=== PATIENT | female | born 1980 | race Caucasian/White ===

== ENCOUNTER 2018-01-05 16:35 | Emergency (ER) | payer MEDICAID ==
[2018-01-05 17:08] VITALS: BMI 23.3
[2018-01-05 17:55] LABS: SQUAMOUS EPITHIAL 9 /hpf (0-5); URINE BACTERIA FEW (<OCC); URINE BILIRUBIN NEGATIVE (NEGATIVE); URINE BLOOD NEGATIVE (NEGATIVE); URINE CLARITY Hazy (Clear); URINE COLOR Yellow (YELLOW); URINE GLUCOSE (UA) 1+ mg/dL (Normal); URINE LEUKOCYTE ESTERASE 2+ Leu/uL (Negative); URINE PROTEIN 1+ mg/dL (NEGATIVE)
--- NOTE | 2018-01-05 18:06 | OBHP ---
Datetime: 01/05/2018 18:02 Admit Comment, IP Provider: ua 3+ le pt feels good plan dc home macrobid po hy ptl giveb f/u in 1 day FHR - Baseline A Provider: 140 Contraction Comments Provider: none NICHD Variability Prov Fetus A: Moderate 6-25bpm NICHD Accel Fetus A IP Provider: 15X15 FHR Category Provider Fetus A: Category I
--- NOTE | 2018-01-05 18:08 | OBDCSUM ---
Datetime: 01/05/2018 18:05 Discharged to, Provider: Home Follow up at, Provider: 1-2 Follow up in weeks, Provider: clinic Discharge Comment, Provider: macrobid po hy ptl giveb f/u in 1 day Discharge Diagnosis Prov Other: 36week uti nst
[2018-01-05 22:33] VITALS: BP 102/69; PULSE 90
== END 2018-01-05 18:20 | disposition home or self-care (01) ==
LOC: C.EROB 16:35
DX: O23.43 Unspecified infection of urinary tract in pregnancy, third trimester (principal); Z3A.36 36 weeks gestation of pregnancy

== ENCOUNTER 2018-01-26 07:51 | Inpatient (IN) | payer MEDICAID, OTHER ==
[2018-01-26 07:54] VITALS: BMI 25.0
[2018-01-26 08:09] LABS: BASO # 0.1 K/uL (0.0-0.2); EOS # 0.6 K/uL (0.0-0.7); EOS % 4.6 % (0.0-4.0); HEMOGLOBIN 9.8 g/dL (11.0-16.0); LYMPH # 3.5 K/uL (1.0-4.3); LYMPH % 26.9 % (20.0-40.0); MEAN CELL VOLUME 75.2 fL (81.0-99.0); MEAN CORPUSCULAR HEMOGLOBIN 24.3 pg (27.0-31.0); MEAN CORPUSCULAR HGB CONC 32.4 g/dL (33.0-37.0); MEAN PLATELET VOLUME 9.9 fL (7.2-11.7); MONO # 1.2 K/uL (0.0-0.8); MONO % 9.4 % (0.0-10.0); NEUT # 7.6 K/uL (1.8-7.0); NEUT % 58.1 % (50.0-75.0); RBC 4.05 Mil/uL (3.80-5.20)
[2018-01-26 08:18] LABS: SQUAMOUS EPITHIAL 49 /hpf (0-5); URINE BACTERIA RARE (<OCC); URINE BILIRUBIN NEGATIVE (NEGATIVE); URINE BLOOD NEGATIVE (NEGATIVE); URINE CLARITY Hazy (Clear); URINE GLUCOSE (UA) NORMAL (Normal); URINE LEUKOCYTE ESTERASE 3+ Leu/uL (Negative); URINE PROTEIN NEGATIVE (NEGATIVE); URINE UROBILINOGEN NORMAL mg/dL (0.2-1.0)
[2018-01-26 08:21] LABS: URINE COLOR YELLOW (YELLOW)
[2018-01-26 08:32] LABS: ALB/GLOB RATIO 0.9 (1.0-2.1); ALBUMIN 3.3 g/dL (3.5-5.0); ALT/SGPT 10 U/L (9-52); AST/SGOT 24 U/L (14-36); BLOOD UREA NITROGEN 6 mg/dL (7-17); CALCIUM 8.2 mg/dl (8.6-10.4); GFR AFRICAN-AMERICAN > 60; GFR NON-AFRICAN AMERICAN > 60
[2018-01-26] MEDS ORDERED: Sodium Citrate/Citric Acid 15 ml Sol ONE (08:35)
[2018-01-26] MEDS ORDERED: cefOXitin IV 2 gm in Saline 2 GM/50 ML BAG IVPB ONE (08:37)
[2018-01-26] MEDS ORDERED: Sodium Citrate/Citric Acid 15 ml Sol PO ONE (08:45)
[2018-01-26] MEDS ORDERED: cefOXitin IV 2 gm in Saline 2 GM in Sodium Chloride 0.9% 100 ML IV ONE (09:00)
[2018-01-26] MEDS ORDERED: Oxytocin 10 Units/ml Inj ONE (09:06)
[2018-01-26] MEDS ORDERED: Oxytocin 20 units in LR 2,000 ML IV ONE (09:07)
[2018-01-26] MEDS ORDERED: ePHEDrine 50 mg/ml Inj ONE (09:10)
[2018-01-26] MEDS ORDERED: Morphine 1 mg/ml preservative-free Inj(Duramorph) ONE (09:10)
--- NOTE | 2018-01-26 09:16 | OBADHP ---
Datetime: 01/26/2018 09:11 Admit Comment, IP Provider: @ 39 wks hx of prior cxs 18 months ago here for schleued repta c xs densi any lof, vb, ctx, +FM. Pt has no copliants OB: FT CXS x 1 unomplciated PROGRAM TRAINER: dnies hx of abnormal pa, fibrod, ovairn syt, sti pmhh denies PSH: CxS med pnv all nkda psh de soch de ve closed @ 39 wks GA for schleued repaet CxS admi to L_D npo, ivf admission labs cont tooc and efm prolphylactyi anbitiocs abodminal prep mae to gravity scds or/anestehis aware Pelvic Type - PN: Adequate Extremities - PN: Normal Abdomen - PN: Normal Back - PN: Normal Breast - PN: Not Done Lungs - PN: Normal Heart - PN: Normal Thyroid - PN: Not Done Neurologic - PN: Normal HEENT - PN: Normal General - PN: Normal Presentation-Admit: Vertex FHR - Baseline A Provider: 145 Membranes, Provider: Intact Gestation - Est Wks by US: 39.0 IP Hx Assessment: The History has been Reviewed and is Current Vital Signs Provider: Reviewed; Within Normal Limits IP Chief Complaint: Scheduled Section NICHD Variability Prov Fetus A: Moderate 6-25bpm FHR Category Provider Fetus A: Category I NICHD Decel Fetus A IP Provider: None Dilatation, Provider: 0 Genitourinary Exam: Normal DTRs - PN: Normal EGA AdmitDate IP: 39.0 IP Adm Impression: Term, intrauterine IP Admit Plan: Admit to unit Datetime: 01/05/2018 18:02 IP Chief Complaint Other: cramping Contraction Comments Provider: none NICHD Accel Fetus A IP Provider: 15X15 Effacement, Provider: 0 Station, Provider: -4
--- NOTE | 2018-01-26 12:10 | OBDS ---
DELIVERY PERSONNEL Delivery Doctor: Jeannette Valle MD Scrub Nurse: Willow Smith/ Yoli Stovall RN Tool And Equipment Rental Clerk: Allyn Castillo RN Anesthesiologist: Resident: Milli Mae (Medical Student) MATERNAL INFORMATION Delivery Anesthesia: Spinal Medications in Delivery: Pitocin 20 units in 1000ml LR Estimated Blood Loss (ml): 800 Placenta Cultured: No Maternal Complications: None; Premature Rupture of Membranes RN Comments: Liveborn Baby Boy. 9-9 Provider Comments: live male infant agpar 9,9 weight of 7lbs 10 ounces repat cxs no compliationa eba l 800 ml pediatiral presnt for deliveyr LABOR SUMMARY EDC: 02/02/2018 00:00 No. Babies in Womb: 1 Attempted: No Labor Anesthesia: None LABOR INFORMATION Reason for Induction: Not Applicable Oxytocin: N/A Group B Beta Strep: Positive Antibiotics # of Doses: 1 Antibiotics Time of Last Dose: MEfoxin 2gm IV @ 9:15am Steroids Given: None Reason Steroids Not Administered: Not Applicable MEMBRANES Membranes Rupture Method: Artificial Rupture of Membranes: 01/26/2018 09:43 Length of Rupture (hrs): 0.00 Amniotic Fluid Color: Clear Amniotic Fluid Amount: None Amniotic Fluid Odor: Normal STAGES OF LABOR Stage 3 hrs: 0 Stage 3 min: 2 CSECTION DELIVERY Primary Indication: Repeat Elective Secondary Indication: N/A CSection Urgency: Non Elective CSection Incidence: Repeat Labor: No Labor Elective: Nonelective CSection Incision: Lower Uterine Transverse BABY A INFORMATION Delivery Date/Time: 01/26/2018 09:43 Method of Delivery: Born in Route : No : N/A Forceps: N/A Vacuum Extraction: N/A Shoulder Dystocia : No SHOULDER DYSTOCIA BABY A Delivery Date/Time: 01/26/2018 09:43 PRESENTATION/POSITION BABY A Presentation: Cephalic Cephalic Presentation: Vertex Vertex Position: Left Occipital Anterior Breech Presentation: N/A PLACENTA INFORMATION BABY A Placenta Delivery Time : 01/26/2018 09:45 Placenta Method of Delivery: Manual Removal Placenta Status: Delivered SCORES BABY A Heart Rate 1 min: >100 bpm Resp Effort 1 min: Good Cry Reflex Irritability 1 min: Cough or Sneeze or Pulls Away Muscle Tone 1 min: Active Motion Color 1 min: Body [place], Extremities Blue Resuscitation Effort 1 min: N/A SCORE 1 MIN: 9 Heart Rate 5 min: >100 bpm Resp Effort 5 min: Good Cry Reflex Irritability 5 min: Cough or Sneeze or Pulls Away Muscle Tone 5 min: Active Motion Color 5 min: Body [place], Extremities Blue Resuscitation Effort 5 min: N/A SCORE 5 MIN: 9 INFORMATION BABY A Gestational Age at Delivery: 39.0 Gestational Status: Term Infant Outcome : Liveborn Condition : Stable Infant Sex: Male IDENTIFICATION/MEDS BABY A ID Band Number: [id number] ID Band Location: Left Leg; Left Arm Sensor Applied: Yes Sensor Number: [id number] Sensor Location : Cord Clamp Vitamin K Given : Not Given Erythromycin Given: Not Given WEIGHT/LENGTH BABY A Birthweight (gms): 3470 Weight (lb): 7 Weight (oz): 10 Length Inches: 20.00 Length cms: 50.8 CORD INFORMATION BABY A No. Cord Vessels: 3 Nuchal Cord : N/A Cord Blood Taken: Yes Infant Suction: Mouth; Nose ASSESSMENT BABY A Infant Complications: None Physical Findings at Delivery: Within Normal Limits Infant Respirations: Appears Normal Switchboard Wire Worker Helper/ALS Called : No Infant Care By: Transferred To: [facility]
--- NOTE | 2018-01-26 12:12 | PCM.SURG1 ---
Surgeon's Initial Post Op Note - Surgeon's Notes Surgeon: Yadira woods MD Awning Hanger Helper: Dr Raul Watts Type of Anesthesia: Spinal Pre-Operative Diagnosis: Previous Cesearean section for repeat cesearean section , term intrauteiren Operative Findings: live male infant gapar 9,9 weight of 7lbs 10 ounces, normal appeairn guteurs, tubes and ovaries b/l, fuel house attendant present for deliveyr. Dr Watts was surgical assistan and present for entire case and essential in gaining entry, retractin, exposure, hoding bladder blade , helping to dleiver infanta, closing all layers and was prsent for etnire case. Post-Operative Diagnosis: same as above Operation Performed: repeat low transverse cesearean section Specimen/Specimens Removed: placneta Estimated Blood Loss: EBL {In ML}: 800 Blood Products Given: N/A Drains Used: No Drains Date of Surgery/Procedure: 01/26/18 Time of Surgery/Procedure: 10:00
--- NOTE | 2018-01-26 12:21 | OBDS ---
DELIVERY PERSONNEL Delivery Doctor: Jeannette Valle MD Scrub Nurse: Willow Smith/ Yoli Stovall RN Medical Administrative: Allyn Castillo RN Anesthesiologist: Resident: Milli Mae (Medical Student) MATERNAL INFORMATION Delivery Anesthesia: Spinal Medications in Delivery: Pitocin 20 units in 1000ml LR Estimated Blood Loss (ml): 800 Placenta Cultured: No Maternal Complications: None; Premature Rupture of Membranes RN Comments: Liveborn Baby Boy. 9-9 Provider Comments: live male infant agpar 9,9 weight of 7lbs 10 ounces repat cxs no compliationa eba l 800 ml pediatiral presnt for deliveyr LABOR SUMMARY EDC: 02/02/2018 00:00 No. Babies in Womb: 1 Attempted: No Labor Anesthesia: None LABOR INFORMATION Reason for Induction: Not Applicable Oxytocin: N/A Group B Beta Strep: Positive Antibiotics # of Doses: 1 Antibiotics Time of Last Dose: MEfoxin 2gm IV @ 9:15am Steroids Given: None Reason Steroids Not Administered: Not Applicable MEMBRANES Membranes Rupture Method: Artificial Rupture of Membranes: 01/26/2018 09:43 Length of Rupture (hrs): 0.00 Amniotic Fluid Color: Clear Amniotic Fluid Amount: None Amniotic Fluid Odor: Normal STAGES OF LABOR Stage 3 hrs: 0 Stage 3 min: 2 CSECTION DELIVERY Primary Indication: Repeat Elective Secondary Indication: N/A CSection Urgency: Non Elective CSection Incidence: Repeat Labor: No Labor Elective: Nonelective CSection Incision: Lower Uterine Transverse BABY A INFORMATION Delivery Date/Time: 01/26/2018 09:43 Method of Delivery: Born in Route : No : N/A Forceps: N/A Vacuum Extraction: N/A Shoulder Dystocia : No SHOULDER DYSTOCIA BABY A Delivery Date/Time: 01/26/2018 09:43 PRESENTATION/POSITION BABY A Presentation: Cephalic Cephalic Presentation: Vertex Vertex Position: Left Occipital Anterior Breech Presentation: N/A PLACENTA INFORMATION BABY A Placenta Delivery Time : 01/26/2018 09:45 Placenta Method of Delivery: Manual Removal Placenta Status: Delivered SCORES BABY A Heart Rate 1 min: >100 bpm Resp Effort 1 min: Good Cry Reflex Irritability 1 min: Cough or Sneeze or Pulls Away Muscle Tone 1 min: Active Motion Color 1 min: Body [place], Extremities Blue Resuscitation Effort 1 min: N/A SCORE 1 MIN: 9 Heart Rate 5 min: >100 bpm Resp Effort 5 min: Good Cry Reflex Irritability 5 min: Cough or Sneeze or Pulls Away Muscle Tone 5 min: Active Motion Color 5 min: Body [place], Extremities Blue Resuscitation Effort 5 min: N/A SCORE 5 MIN: 9 INFORMATION BABY A Gestational Age at Delivery: 39.0 Gestational Status: Term Infant Outcome : Liveborn Condition : Stable Infant Sex: Male IDENTIFICATION/MEDS BABY A ID Band Number: [id number] ID Band Location: Left Leg; Left Arm Sensor Applied: Yes Sensor Number: [id number] Sensor Location : Cord Clamp Vitamin K Given : Not Given Erythromycin Given: Not Given WEIGHT/LENGTH BABY A Birthweight (gms): 3470 Weight (lb): 7 Weight (oz): 10 Length Inches: 20.00 Length cms: 50.8 CORD INFORMATION BABY A No. Cord Vessels: 3 Nuchal Cord : N/A Cord Blood Taken: Yes Infant Suction: Mouth; Nose ASSESSMENT BABY A Infant Complications: None Physical Findings at Delivery: Within Normal Limits Infant Respirations: Appears Normal Ibm Bpm Architect/ALS Called : No Infant Care By: Transferred To: [facility]
[2018-01-26] MEDS ORDERED: Oxycodone/Acetaminophen 5/325 mg Tab PO PRN (17:53)
[2018-01-26] MEDS: Simethicone 80 mg Chewtab PO SCH (22:22)
--- NOTE | 2018-01-27 07:00 | OP ---
PROCEDURE DATE: 01/26/2018 PREOPERATIVE DIAGNOSES: Previous section for repeat section, term intrauterine . POSTOPERATIVE DIAGNOSES: Previous section for repeat section, term intrauterine . OPERATIVE FINDINGS: Live male infant, Apgars 9 and 9, weight is 7 pounds 7 ounces. Normal-appearing uterus, tubes, and ovaries bilaterally. Chief Radiology was present for the delivery. Dr. Vasquez was surgical nurse practitioner, who was present for the entire case and assisted in gaining entry, retraction, exposure, holding the bladder blade, helping to deliver the , closing all layers and was present for the entire case. OPERATION PERFORMED: Repeat low-transverse section. SURGEON: Yadira Valle MD SCENE PAINTER: Raul Vasquez MD TYPE OF ANESTHESIA: Spinal. SPECIMEN REMOVED: Placenta. ESTIMATED BLOOD LOSS: 800 mL. BLOOD PRODUCTS: None. COMPLICATIONS: None. DESCRIPTION OF PROCEDURE: The patient was taken to the operating room where she was given spinal anesthesia. Once it was found to be adequate, she was positioned on the operating table in dorsal supine position. The patient was then prepped and draped in the usual sterile fashion. A time-out confirmed correct patient and correct procedure. The patient had Gutiérrez catheter inserted, was given preoperative prophylactic antibiotics. A Pfannenstiel skin incision was made through the existing incision and carried down to the underlying fascia with a Bovie. The fascia was incised in the midline and extended laterally with the Bovie. The inferior aspect of the fascial incision was grasped with Allis and Reji clamps and the underlying rectus muscles were dissected off bluntly. Attention was then turned to the superior aspect of the incision which in a similar fashion was grasped with the Reji clamps and the underlying rectus muscles were dissected off bluntly. The rectus muscles were then bluntly in the midline. The peritoneum identified in a clear manner, entered bluntly. The incision was extended laterally and superiorly until there was good visualization of the bladder. The lower end of the [place] was then reinserted. The vesicouterine peritoneum was incised with Metzenbaum scissors. The bladder flap was created digitally and the lower end of the Cristian was then reinserted. Lower uterine segment was incised in a transverse fashion. The uterine incision was extended laterally bluntly. The surgeon's hand entered into the uterine cavity. 's head was delivered atraumatically after amniotic membranes were then ruptured. There was clear fluid noted. The 's head was delivered atraumatically. There was loose nuchal cord x1, followed by atraumatically delivering the shoulder, followed by delivery of the body. Both oral and nasal passages of the baby were bulb suctioned. The umbilical cord was clamped and cut. Baby was handed off to the awaiting cover stripper. Cord blood was collected and sent x2. The placenta was then delivered manually. The uterus was exteriorized, cleared of clots and debris. The uterine incision was repaired with 0-Vicryl in a running continuous locked fashion. A second layer of the same suture was used to close the uterus in a running imbricated manner. After this, good hemostasis was noted. The uterus was then returned to the abdomen. The paracolic gutters were cleared of all clots and debris. There was good hemostasis at the uterine incision site. The peritoneum was reapproximated with 2-0 chromic in a running continuous fashion. The rectus was reapproximated and closed with 2-0 chromic in an interrupted manner. The fascia was reapproximated and closed with 0-Vicryl in running subcuticular fashion. The skin was reapproximated and closed with blue. At the end of the procedure, all needles, sponge, and instrument counts were noted as correct x2. The patient tolerated the procedure well and was transferred to the recovery room in stable condition. Yadira Valle MD
[2018-01-27] MEDS: Oxycodone/Acetaminophen 5/325 mg Tab PO PRN ×3 (08:14→22:05)
[2018-01-27 08:36] LABS: BASO # 0.1 K/uL (0.0-0.2); BASO % 0.4 % (0.0-2.0); EOS # 0.6 K/uL (0.0-0.7); EOS % 4.3 % (0.0-4.0); HEMOGLOBIN 8.5 g/dL (11.0-16.0); LYMPH # 1.7 K/uL (1.0-4.3); LYMPH % 11.6 % (20.0-40.0); MEAN CELL VOLUME 76.7 fL (81.0-99.0); MEAN CORPUSCULAR HEMOGLOBIN 24.3 pg (27.0-31.0); MEAN CORPUSCULAR HGB CONC 31.6 g/dL (33.0-37.0); MEAN PLATELET VOLUME 9.9 fL (7.2-11.7); MONO # 0.9 K/uL (0.0-0.8); MONO % 6.1 % (0.0-10.0); NEUT # 11.7 K/uL (1.8-7.0); NEUT % 77.6 % (50.0-75.0); RBC 3.5 Mil/uL (3.80-5.20); RED CELL DISTRIBUTION WIDTH 16.5 % (11.5-14.5)
[2018-01-27] MEDS: Simethicone 80 mg Chewtab PO SCH ×4 (09:16→22:04)
[2018-01-27] MEDS: Prenatal Multivit/Folic Acid/Iron Tab PO SCH (09:17)
[2018-01-27] MEDS ORDERED: Bisacodyl 5mg EC Tab PO ONE (17:54)
[2018-01-28 07:59] VITALS: RESP 20
[2018-01-28] MEDS: Simethicone 80 mg Chewtab PO SCH ×4 (09:07→21:33)
[2018-01-28] MEDS: Prenatal Multivit/Folic Acid/Iron Tab PO SCH (09:07)
--- NOTE | 2018-01-28 09:38 | OBPPN ---
Datetime: 01/27/2018 10:09 PP Pain Prov: Within normal limits PP Nausea Prov: Denies PP Flatus Prov: Yes PP BM Prov: No PP Breasts Prov: Normal PP Heart Prov: Normal PP Lungs Prov: Normal PP Abdomen/Uterus Prov: Normal PP Lochia Prov: Normal PP Extremities Prov: Normal PP Progress Prov: Normal PP Comments Phys Exam Prov: hgb 8.5 dressing: c/d abd: normoactive bs PP Impression Prov: Normal progression PP Plan Prov: Continue present management PP Progress Note Prov: s:pain controlled with medic; no c/o; tolerating clear liquids i: s/p cd pod1 doing well p: advance to reg diet current care. IP PP Procedures: None Vital Signs Provider PP: Reviewed; Within Normal Limits
--- NOTE | 2018-01-28 14:06 | OBPPN ---
Datetime: 01/28/2018 14:01 PP Pain Prov: Within normal limits PP Nausea Prov: Denies PP Flatus Prov: Yes PP Abdomen/Uterus Prov: Normal PP Extremities Prov: Normal PP C/S Incision Prov: Normal PP Comments Phys Exam Prov: fudus below umblicus ext mild edema,no mike ten incision clean and dry PP Impression Prov: Normal progression PP Plan Prov: Continue present management PP Progress Note Prov: pt was seen at bed sifde, pain unfder control,no n/v, min lochia, tolerating deit,voiding,min lochia,flatu+ pod#2 cont post op care cont pain manageme encourage ambulation Vital Signs Provider PP: Reviewed; Within Normal Limits
[2018-01-29] MEDS: Oxycodone/Acetaminophen 5/325 mg Tab PO PRN (08:34)
[2018-01-29] MEDS: Simethicone 80 mg Chewtab PO SCH (09:41)
[2018-01-29] MEDS: Prenatal Multivit/Folic Acid/Iron Tab PO SCH (09:41)
--- NOTE | 2018-01-29 10:23 | OBPPN ---
Datetime: 01/29/2018 10:21 PP Pain Prov: Within normal limits PP Nausea Prov: Denies PP Flatus Prov: Yes PP BM Prov: Yes PP Breasts Prov: Normal PP Heart Prov: Normal PP Lungs Prov: Normal PP Abdomen/Uterus Prov: Normal PP Lochia Prov: Normal PP Vulva/Perineum Prov: Normal PP CVA Tenderness Prov: Normal PP Extremities Prov: Normal PP C/S Incision Prov: Normal PP Progress Prov: Normal PP Impression Prov: Normal progression PP Plan Prov: Continue present management PP Progress Note Prov: pt was seen at bed sifde, pain unfder control,no n/v, min lochia, tolerating deit,voiding,min lochia,flatus, reuqesitn dc. s/p rlptcd pod#3 dc home encourage ambulation fu 1 week precuatoin give IP PP Procedures: None Vital Signs Provider PP: Reviewed; Within Normal Limits
--- NOTE | 2018-01-29 10:23 | OBDCSUM ---
Datetime: 01/29/2018 10:22 Discharged to, Provider: Home Follow up at, Provider: clinic Disch Instr Activity: Normal activity Disch Instr Diet: Regular Discharge Instructions, Provider: Routine instructions given Discharge Diagnosis, Provider: Term Delivered Discharge Time: 01/29/2018 10:22 Follow up in weeks, Provider: 1 week Disch Referrals: None Contraception discussed, Prov: Yes Disch Activity Restrictions: No sexual activity; Nothing in vagina - [place], tampons, douche Discharge Comment, Provider: f/u 1 week peruait ngive Contraception after Delivery: Not Planning to Use
[2018-01-29 17:56] VITALS: BP 95/59; PULSE 61; TEMP 97.8; O2SAT 100
== END 2018-01-29 13:30 | disposition home or self-care (01) | DRG 371 ==
LOC: C.4D 07:51 → C.4M 12:36
PROVIDERS: ADMIT Obstetrics & Gynecology; ATTEND Obstetrics & Gynecology
PROC: 10D00Z1 Extraction of Products of Conception, Low, Open Approach (ICD-10-PCS; principal; 2018-01-26)
DX: O34.219 Maternal care for unspecified type scar from previous cesarean delivery (principal); O99.824 Streptococcus B carrier state complicating childbirth; Z3A.39 39 weeks gestation of pregnancy; Z37.0 Single live birth

== ENCOUNTER 2019-02-08 07:38 | Inpatient (IN) | payer MEDICAID, OTHER ==
[2019-02-08 07:43] VITALS: BMI 25.9
[2019-02-08 08:27] LABS: BASO % 0.4 % (0.0-2.0); EOS # 0.3 K/uL (0.0-0.7); EOS % 3.9 % (0.0-4.0); MEAN CORPUSCULAR HEMOGLOBIN 26.5 pg (27.0-31.0); MEAN CORPUSCULAR HGB CONC 32.3 g/dL (33.0-37.0); MEAN PLATELET VOLUME 9.8 fL (7.2-11.7); MONO # 0.7 K/uL (0.0-0.8); MONO % 9.5 % (0.0-10.0); NEUT # 4.6 K/uL (1.8-7.0); NEUT % 60.2 % (50.0-75.0); RBC 4.52 Mil/uL (3.80-5.20); RED CELL DISTRIBUTION WIDTH 17.2 % (11.5-14.5); WHITE BLOOD COUNT 7.6 K/uL (4.8-10.8)
[2019-02-08] MEDS: Lactated Ringer's 1,000 ML IV SCH (08:30)
[2019-02-08 08:37] LABS: MEAN CELL VOLUME 82.1 fL (81.0-99.0)
[2019-02-08 08:37] LABS: SQUAMOUS EPITHIAL 6 /hpf (0-5); URINE BACTERIA RARE (<OCC); URINE BILIRUBIN NEGATIVE (NEGATIVE); URINE BLOOD NEGATIVE (NEGATIVE); URINE CLARITY Clear (Clear); URINE COLOR Yellow (YELLOW); URINE GLUCOSE (UA) NORMAL (Normal); URINE LEUKOCYTE ESTERASE 1+ Leu/uL (Negative); URINE PROTEIN NEGATIVE (NEGATIVE)
[2019-02-08 08:42] LABS: ALB/GLOB RATIO 1.1 (1.0-2.1); ALBUMIN 3.7 g/dL (3.5-5.0); ALT/SGPT 29 U/L (9-52); AST/SGOT 25 U/L (14-36); BLOOD UREA NITROGEN 5 mg/dL (7-17); CALCIUM 8.5 mg/dl (8.6-10.4); GFR NON-AFRICAN AMERICAN > 60
[2019-02-08] MEDS ORDERED: Lactated Ringer's 1,000 ML IV ONE (08:45)
[2019-02-08] MEDS ORDERED: cefOXitin IV 2 gm in Dextrose 2 GM/50 ML BAG IVPB ONE ×2 (08:45→09:18)
[2019-02-08] MEDS ORDERED: Sodium Citrate/Citric Acid 15 ml Sol ONE (09:11)
[2019-02-08] MEDS ORDERED: Oxytocin 10 Units/ml Inj ONE (09:20)
[2019-02-08] MEDS ORDERED: Oxytocin 20 units in LR 2,000 ML IV ONE (09:22)
[2019-02-08] MEDS ORDERED: Sodium Citrate/Citric Acid 15 ml Sol PO ONE (10:18)
[2019-02-08] MEDS ORDERED: Morphine 1 mg/ml preservative-free Inj(Duramorph) ONE (10:45)
[2019-02-08] MEDS ORDERED: Phenylephrine 10 mg/ml Inj ONE (11:50)
[2019-02-08] MEDS ORDERED: ePHEDrine 50 mg/ml Inj ONE (12:07)
--- NOTE | 2019-02-08 12:25 | OBHP ---
Datetime: 02/08/2019 10:26 IP Adm Impression: Term, intrauterine IP Chief Complaint Other: Previous IP Admit Plan: Admit to unit; Initiate Section protocol Admit Comment, IP Provider: Patient is a 38 YO F , LMP 05/10 LATISHA 02/14, confirmed by LMP and first trimester US, estimated gestation age 39 weeks. Coming in today for scheduled due to 2 prior C-sections. Patient denies current vaginal bleed, loss of fluids, cramping and contractions . She reports good movement, increased urinary frequency and inadequate hydration. Her outpatie nt OBGyn is Dr. Mendosa at [facility]. She denied any complications or events during the pre gnancy. Patient delivered a 6lb M, via at 40 weeks gestation at [facility] and a 7lb 10 oz M in 2018 via at [facility]. Denies complications or events with past bailey guerrero. Event Set Up Specialist Hx - Menarche age 15, she reports her periods are regular lasting 6 days occuring every 27/28 days. She denied history of STDs, fibroids or cysts. PMH: Denies PSH: x2 Allergies: NKDA Meds: Prenatals, Ferrosol and Vitamin C Social Hx: Denies tobacco, alcohol and recreational drugs, currently and not working. Fam Hx: Denied, M 60 alive and well, F 67 alive and well A/P - Patient is 38 years old coming in for scheduled Previous C/S x 2 Unknown GBS Requesting Repeat C/S Will admit for elective repeat C/S Labs, Medications ordered Procedure, risks and possible complications fully reviewed with the patient and her and david th verbalized understanding after all of their questions were answered to their full satisfaction. Pt then requested to proceed and signed the consent for surgery and for Blood transfusion if needed. - Cefoxitin 2gm IV once - LR @ 125 - Sodium citrate 30 ml once - Pepcid 20 mg IV daily Marina Fernandez OMS III Jamar Santos PGY3 Pt seen and examined with Dr. Santos and Med Student Rebecca and agreed with all of their findings and POC. Pelvic Type - PN: Adequate Extremities - PN: Normal Abdomen - PN: Normal Back - PN: Normal Breast - PN: Not Done Lungs - PN: Normal Heart - PN: Normal Thyroid - PN: Normal Neurologic - PN: Normal HEENT - PN: Normal General - PN: Normal FHR - Baseline A Provider: 145 Comments, ACOG Physical Exam: Heart - S1, S2 no S3/S4 no rubs or gallops Lungs - normal lung sounds on all laurent, no rrw Abdomen fundal height - 36 cm Extremities - trace edema, 2+ pulses on all extremities Gestation - Est Wks by US: 39.0 EGA AdmitDate IP: 39.1 Vital Signs Provider: Reviewed; Within Normal Limits IP Chief Complaint: Scheduled Section NICHD Variability Prov Fetus A: Moderate 6-25bpm FHR Category Provider Fetus A: Category I NICHD Decel Fetus A IP Provider: None Dilatation, Provider: 2 Effacement, Provider: 50 Station, Provider: -3 Genitourinary Exam: Normal DTRs - PN: Not Done
--- NOTE | 2019-02-08 12:48 | OBDS ---
DELIVERY PERSONNEL Delivery Doctor: Dr Dejan Rucker Nurse: Willow Smith Fire Prevention Engineer: Muna Padilla RN Anesthesiologist: Dr Mills MATERNAL INFORMATION Delivery Anesthesia: Spinal Medications in Delivery: 80 units of pitocin Placenta Cultured: No Maternal Complications: None Provider Comments: Repeat LTC C/S after admitted with contractions and probable early labor. Deliver y of a viable female from [facility] after reducing a loose CNC x 1. Apgars 9_9 and BW 6lbs, 10oz. Cord Blood and Cord pH obtained and sent Placenta with 3 vessel cord was manually removed and discarded EBL 600 Pt and tolerated the procedure well and remained in the OR in S_S condition Dr. Zhou assited with the entire procedure. LABOR SUMMARY EDC: 02/14/2019 00:00 No. Babies in Womb: 1 Attempted: No LABOR INFORMATION Reason for Induction: Not Applicable Steroids Given: None Reason Steroids Not Administered: Not Applicable STAGES OF LABOR Stage 3 hrs: 0 Stage 3 min: 1 CSECTION DELIVERY Primary Indication: Term with contractions Other Primary Indication: Previous C/S x 2 Secondary Indication: Repeat Elective CSection Urgency: Elective CSection Incidence: Repeat Labor: early labor Elective: Elective CSection Incision: Lower Uterine Transverse BABY A INFORMATION Delivery Date/Time: 02/08/2019 11:15 Method of Delivery: Born in Route : Yes : N/A Forceps: N/A Vacuum Extraction: N/A Shoulder Dystocia : No SHOULDER DYSTOCIA BABY A Infant Delivery Date/Time: 02/08/2019 11:15 PRESENTATION/POSITION BABY A Presentation: Cephalic Cephalic Presentation: Vertex Vertex Position: Right Occipital Anterior Breech Presentation: N/A PLACENTA INFORMATION BABY A Placenta Delivery Time : 02/08/2019 11:16 Placenta Method of Delivery: Manual Removal Placenta Status: Delivered SCORES BABY A Heart Rate 1 min: >100 bpm Resp Effort 1 min: Good Cry Reflex Irritability 1 min: Cough or Sneeze or Pulls Away Muscle Tone 1 min: Active Motion Color 1 min: Body [place], Extremities Blue Resuscitation Effort 1 min: Tactile Stimulation SCORE 1 MIN: 9 Heart Rate 5 min: >100 bpm Resp Effort 5 min: Good Cry Reflex Irritability 5 min: Cough or Sneeze or Pulls Away Muscle Tone 5 min: Active Motion Color 5 min: Body [place], Extremities Blue Resuscitation Effort 5 min: N/A SCORE 5 MIN: 9 INFANT INFORMATION BABY A Gestational Age at Delivery: 39.1 Gestational Status: Term Infant Outcome : Liveborn Infant Condition : Stable Infant Sex: Female IDENTIFICATION/MEDS BABY A ID Band Number: [id number] ID Band Location: Left Leg; Left Arm Sensor Applied: Yes Sensor Number: [id number] Sensor Location : Cord Clamp Vitamin K Given : Not Given Erythromycin Given: Not Given WEIGHT/LENGTH BABY A Infant Birthweight (gms): 3020 Infant Weight (lb): 6 Infant Weight (oz): 10 Length Inches: 19.00 Infant Length cms: 48.3 CORD INFORMATION BABY A No. Cord Vessels: 3 Nuchal Cord : Around Neck x1, Loose Cord pH Baby Arterial: 7.25 Cord pH Baby Venous: 7.34 Cord Blood Taken: Yes Suction: Mouth; Nose ASSESSMENT BABY A Infant Complications: None Physical Findings at Delivery: Within Normal Limits Infant Respirations: Appears Normal Material Controller/ALS Called : No Infant Care By: Sofía Orourke Transferred To: Remains with Mother (Annotations: Data stored by N on behalf of user)
[2019-02-08] MEDS: Simethicone 80 mg Chewtab PO SCH ×3 (18:34→22:41)
[2019-02-09 07:22] LABS: BASO # 0.1 K/uL (0.0-0.2); BASO % 0.4 % (0.0-2.0); EOS # 0.4 K/uL (0.0-0.7); EOS % 3.1 % (0.0-4.0); HEMOGLOBIN 11.1 g/dL (11.0-16.0); LYMPH # 2.1 K/uL (1.0-4.3); LYMPH % 17.5 % (20.0-40.0); MEAN CELL VOLUME 83.5 fL (81.0-99.0); MEAN CORPUSCULAR HEMOGLOBIN 26.9 pg (27.0-31.0); MEAN CORPUSCULAR HGB CONC 32.2 g/dL (33.0-37.0); MEAN PLATELET VOLUME 9.5 fL (7.2-11.7); MONO % 8.3 % (0.0-10.0); NEUT # 8.6 K/uL (1.8-7.0); NEUT % 70.7 % (50.0-75.0); RBC 4.12 Mil/uL (3.80-5.20); RED CELL DISTRIBUTION WIDTH 17.6 % (11.5-14.5)
[2019-02-09 07:24] LABS: WHITE BLOOD COUNT 12.1 K/uL (4.8-10.8)
[2019-02-09] MEDS: Simethicone 80 mg Chewtab PO SCH ×4 (09:28→21:41)
[2019-02-09] MEDS: Lactated Ringer's 1,000 ML IV SCH (09:28)
[2019-02-09] MEDS: Oxycodone/Acetaminophen 5/325 mg Tab PO PRN ×3 (10:17→21:48)
--- NOTE | 2019-02-09 12:02 | RAD ---
Date of service: 02/09/2019 HISTORY: positive ppd COMPARISON: No prior. TECHNIQUE: Chest PA and lateral views FINDINGS: LUNGS: No active pulmonary disease. PLEURA: No significant pleural effusion identified. No pneumothorax apparent. CARDIOVASCULAR: No aortic atherosclerotic calcification present. Normal cardiac size. No pulmonary vascular congestion. OSSEOUS STRUCTURES: No significant abnormalities. VISUALIZED UPPER ABDOMEN: Normal. OTHER FINDINGS: None. IMPRESSION: No active disease.
[2019-02-09] MEDS: Prenatal Multivit/Folic Acid/Iron Tab PO SCH (14:50)
--- NOTE | 2019-02-09 18:35 | OBPPN ---
Datetime: 02/09/2019 16:21 PP Pain Prov: Within normal limits PP Nausea Prov: Denies PP Flatus Prov: No PP BM Prov: No PP Breasts Prov: Not Done PP Heart Prov: Normal PP Lungs Prov: Normal PP Abdomen/Uterus Prov: Normal PP Lochia Prov: Normal PP Vulva/Perineum Prov: Not Done PP CVA Tenderness Prov: Normal PP Extremities Prov: Normal PP C/S Incision Prov: Normal PP Progress Prov: Normal PP Comments Phys Exam Prov: PE: Heart S1, S2 no S3, S4 no rubs and gallops Lungs clear to auscultation on all laurent, no RRW Abdomen: normal bowel sounds on all laurent, fundal height at the level of the umbilicus. Incison s ite clean, dry no discharge, incisions in place LE: no edema, 2+ pulse PP Impression Prov: Normal progression PP Plan Prov: Continue present management PP Progress Note Prov: Patient is a 38 YO F post op day 1, s/p c section with delivery of a 6lb F, EBL 600 cc without complications. She reported 3/10 pain this morning, worse with ambulation. She is currently on pain control with Toradol and Percocet. She denies bowel movement and flatus, has been voiding. She is breast feeding every 2 hours for 10-15 mins, but has not been able to produce m ilk. She is inadequetly hydrated, drinks 2-3 cups of water. She reports some vaginal spotting. Ligia proctor denies fever, chills, nausea, vomiting, diarrhea, and numbness and tingling. Vitals: Temp 97, Pulse 88 BP 107/66 RR 18 A/P 38 YO F post op day 1 s/p with delivery of 6lb F, EBL 600 cc. - Stable and Satisfactory condition and recovery - Post-op H_H 11.1/34.4/ Asymptomatic / A+ - Symptomatic pain management - Encourage ambulation - Encourage po hydration - Encourage breast feeding - Advance care Marina Rebecca OMS III Pt seen and examined with MS III Rebecca and agree with all of her findings and poc IP PP Procedures: None Vital Signs Provider PP: Reviewed (Annotations: Data stored by CPN on behalf of user)
[2019-02-10] MEDS: Simethicone 80 mg Chewtab PO SCH ×4 (10:04→22:00)
[2019-02-10] MEDS: Prenatal Multivit/Folic Acid/Iron Tab PO SCH (10:05)
--- NOTE | 2019-02-10 21:40 | OBPPN ---
Datetime: 02/10/2019 10:09 PP Pain Prov: Within normal limits PP Nausea Prov: Denies PP Flatus Prov: Yes PP BM Prov: No PP Heart Prov: Normal PP Lungs Prov: Normal PP Abdomen/Uterus Prov: Normal PP CVA Tenderness Prov: Normal PP Extremities Prov: Normal PP Progress Prov: Normal PP Impression Prov: Normal progression PP Plan Prov: Continue present management PP Progress Note Prov: Pt seen and examined at bedside. Pt reports no bowel movment post delivery, p assing flatulence. Reports pain is well controlled (approximately 2/10), reports PO H20 intact, denie s bleeding. Denies headaches, chest pain, SOB, N/V, F/C. Vitals 110/67 HR 81 Temp 98.4 Cardio: S1, S2 Resp: CTAL B/L Abd: Soft, non distendend, +BS : Fundal ehight at umbilicus, incision site clean, dry, intact 38 F s/p C/s POD # 2, EBL 600 cc, stable H/H - continue PO H2O hydration - cotninue to ambulate - continue pain management - continue to breast feed (Annotations: Data stored by CPN on behalf of user) IP PP Procedures: None
[2019-02-11] MEDS: Oxycodone/Acetaminophen 5/325 mg Tab PO PRN (00:46)
[2019-02-11 00:54] VITALS: RESP 20
[2019-02-11 08:10] VITALS: BP 117/73; PULSE 75; TEMP 99.1; O2SAT 99
[2019-02-11] MEDS: Prenatal Multivit/Folic Acid/Iron Tab PO SCH (09:15)
[2019-02-11] MEDS: Simethicone 80 mg Chewtab PO SCH (09:15)
--- NOTE | 2019-02-11 14:41 | OBDCSUM ---
Datetime: 02/11/2019 11:33 Discharged to, Provider: Home Follow up at, Provider: gini Terrell Instr Activity: May be up to bathroom; May be up for meals; May Shower Disch Instr Diet: Regular Discharge Instructions, Provider: Routine instructions given Discharge Diagnosis, Provider: Term Delivered Discharge Time: 02/11/2019 12:30 Follow up in weeks, Provider: 1 week Disch Referrals: None Disch Activity Restrictions: No exercising; No lifting; No driving; No sexual activity; Nothing in v agina - [place], tampons, douche Discharge Comment, Provider: Pt is s/p C/s POD #3. Pt seen and examined at bedside. Pt repor ts bowel movement + gas, minimal to no pain, breasfeading and tolerating PO H20 hydration. Vitals wnl Cardio :S1, S2 Resp: CTAL B/l Abd: soft, no tenderness to palpation : LT incision site, clean, dry, intact Ext: B/L no edema, no calf tendereness 38 F s/p C/s POD #3; pt is doing well, anxious to go home, minimal to no pain, has BM + fl atulence. Stable h/h _ asymptomatic - Stable and Satisfctory condition and recovery to go home - f/u w/ OBGYN in 5-7 days - shower and keep incision site clean and dry - pelvic rest X 8 weeks - lift only baby - increase PO H20 hydration. - Continue PNV daily x 3-4 months - Take medications as prescribed Seen _ examined by Daniel Correa, PGY1 Contraception after Delivery: Undecided
== END 2019-02-11 12:30 | disposition home or self-care (01) | DRG 370 ==
LOC: C.4D 07:38 → C.4M 14:29
PROVIDERS: ADMIT Obstetrics & Gynecology; ATTEND Obstetrics & Gynecology
PROC: 10D00Z1 Extraction of Products of Conception, Low, Open Approach (ICD-10-PCS; principal; 2019-02-08)
DX: O69.81X0 Labor and delivery complicated by cord around neck, without compression, not applicable or unspecified (principal); E86.0 Dehydration; O75.89 Other specified complications of labor and delivery; O34.211 Maternal care for low transverse scar from previous cesarean delivery; R35.0 Frequency of micturition; Z3A.39 39 weeks gestation of pregnancy; Z37.0 Single live birth